=== PATIENT | male | born 1990 | race Caucasian/White ===

== ENCOUNTER 2017-10-17 20:43 | Emergency (ER) | payer OTHER, SELFPAY ==
[2017-10-17 20:44] VITALS: BP 146/95; PULSE 105; RESP 16; TEMP 36.8; O2SAT 96; BMI 28.5
[2017-10-17 21:01] LABS: Bedside Glucose 127 mg/dL (70-110)
--- NOTE | 2017-10-17 21:31 | EKG12_ITS ---
Test Reason : DIZZINESS Blood Pressure : / mmHG Vent. Rate : 058 BPM Atrial Rate : 058 BPM P-R Int : 160 ms QRS Dur : 112 ms QT Int : 400 ms P-R-T Axes : 051 022 019 degrees QTc Int : 392 ms Sinus bradycardia with sinus arrhythmia Otherwise normal ECG Confirmed by REMIGIO VASQUEZ, JAMIE ([id number]), editor at large ANA PATEL ([id number]) on 10/20/2017 10:36:30 AM Referred By: VAL Confirmed By:JAMIE FLOOD MD
--- NOTE | 2017-10-17 21:38 | ED.VISSUMM ---
- ER Visit Summary Date of Service: 10/17/17 Chief Complaint: [] Transient dizziness resolved History of Present Illness: The patient is a 27 M [] patient reports earlier they had a nonspecific sense of dizziness such that he did not go to work the dizziness resolved. He had no associated chest pain head pain neck pain no paresthesias, no trouble with his vision fact he had normal functional ability symptoms resolved spontaneously and have not reoccurred he presents to the emergency department, he has had these spells in the past but never followed up Physical Examination: [] Vital signs are normal he has no complaints he is not dizzy he has no symptoms of any kind and not I cannot reproduce his dizziness with movement etc. his HEENT exam is normal his cranial nerve exam is normal his pupils react well nose and throat are unremarkable neck is supple lungs are clear heart tones are normal abdomen soft nontender upper lower extremities unremarkable his motor cerebellar function gait exam are normal he assures me he feels back to baseline Test Results: [] He does not wish to have an ED evaluation specifically does not want any blood testing done imaging etc. he did agree with the EKG that showed sinus rhythm nothing acute he simply wants to go home Emergency Department Course and Treatment: [] At this time given that I explained to him the exact etiology of his transient dizziness that has had in the past unclear he needs to follow-up with his physicians indicates is not sure who that is he will rest return for change in symptoms and he is referred to [facility] on-call Treatment Plan: [] Disposition: [] Home stable client ED workup Impression: [] Transient dizziness resolved This note was generated with [employer] dictation software. It may contain incorrect words, spelling, and punctuation that were not noted in review of the chart prior to signing ED Disposition - Plan for ED Patient: Chief Complaint: Dizziness Referrals: Care Physician,No Primary [Primary Care Provider] -
--- NOTE | 2017-10-17 21:40 | ED.DEP ---
ED Disposition - Plan for ED Patient: Chief Complaint: Dizziness Instructions: ED Dizziness UKO Referrals: Care Physician,No Primary [Primary Care Provider] - Miles Lee [[facility]] -
[2017-10-17 22:16] VITALS: RESP 18
== END 2017-10-17 22:16 | disposition home or self-care (01) ==
PROVIDERS: Emergency Provider Emergency Medicine
DX: R42 Dizziness and giddiness (principal)
CPT/HCPCS: 82962; 93005; 99282

== ENCOUNTER 2017-11-22 16:12 | Emergency (ER) | payer OTHER, SELFPAY ==
[2017-11-22 16:13] VITALS: BP 158/97; PULSE 99; RESP 16; TEMP 36.9; O2SAT 99; BMI 29.8
--- NOTE | 2017-11-22 16:51 | ED.VISSUMM ---
- ER Visit Summary Date of Service: 11/22/17 Chief Complaint: Rectal discomfort and bleeding History of Present Illness: The patient is a 27 M past medical or surgical history. Patient states that today after having a morning bowel movement he had some pain and small rectal bleeding. There is very small amount of blood. Denies any fever. No trauma. No foreign bodies. Said he had this once before but never got it evaluated. He has never had a colonoscopy. Physical Examination: Appearing young male. Vital signs are stable afebrile. He is no acute distress. H EENT neck nontender. Lungs clear to auscultation bilaterally. Heart regular rate and rhythm no murmur. Abdomen is soft nontender. Nondistended no bowel sounds. No organomegaly or masses. Rectal exam he does have rectal tenderness currently there is no bleeding or gross blood. I do not feel any masses. There is no melena. Externally there is no hemorrhoids and there is no gross blood. He is moving all 4 extremities. Neurovascular intact. Neurologic exam normal. Skin normal. Test Results: None Emergency Department Course and Treatment: She has mild rectal discomfort with also small amount of rectal bleeding. More than likely has an internal hemorrhoid versus a fissure. He was instructed to use hemorrhoid cream preparation H. Warm soaks. And he will be given a primary care physician follow-up with. Treatment Plan: [] Disposition: Discharge Impression: Rectal discomfort and bleeding secondary to internal hemorrhoid versus fissure This note was generated with [employer] dictation software. It may contain incorrect words, spelling, and punctuation that were not noted in review of the chart prior to signing ED Disposition - Plan for ED Patient: Chief Complaint: Other, Pain/Inj Referrals: Care Physician,No Primary [Primary Care Provider] -
--- NOTE | 2017-11-22 16:53 | ED.DEP ---
ED Disposition - Plan for ED Patient: Disposition: Home or Assisted Living Chief Complaint: Other, Pain/Inj Instructions: ED Hematochezia Stable, Understanding Hemorrhoids Referrals: Aaron Branch MD [STAFF PHYSICIAN] - Additional Instructions: Use [id number] Preparation H for pain and possible internal hemorrhoids. This is most likely cause either from an internal hemorrhoid versus a rectal fissure which is a small tear in the skin. Warm soaks and the hemorrhoid cream should improve this. If this is not getting better you need follow-up for further evaluation and possible colonoscopy.
== END 2017-11-22 17:01 | disposition home or self-care (01) ==
PROVIDERS: Emergency Provider Emergency Medicine
DX: K62.5 Hemorrhage of anus and rectum (principal); K62.89 Other specified diseases of anus and rectum
CPT/HCPCS: 99282

== ENCOUNTER 2018-05-22 15:31 | Emergency (ER) | payer MEDICAID, SELFPAY ==
[2018-05-22 15:32] VITALS: BP 120/80; PULSE 81; RESP 18; TEMP 36.7; O2SAT 97; BMI 29.4
[2018-05-22] MEDS: 0.9% Normal Saline 1,000 ML 250 ML IV (16:41)
[2018-05-22] MEDS: Ketorolac 30 MG/ML Syringe IV (16:41)
[2018-05-22] MEDS: Morphine 4 MG/ML Syringe IV (16:42)
[2018-05-22] MEDS: Ondansetron 4 MG/2 ML Vial IV (16:42)
[2018-05-22 16:52] LABS: Bacteria 0 SEEN /hpf (None Seen); Mucous, Urine 0 SEEN /hpf (<or=2+); Red Blood Cells-Urine 0 SEEN /hpf (0-5); White Blood Cells 0 SEEN /hpf (0-5)
[2018-05-22 16:55] LABS: Color, Urine Yellow (Yellow); Glucose, Dipstick Normal (Normal); Ketone-Dipstick Negative (Negative); Leukocyte Esterase-Dipstick Negative /ul (Negative); Nitrite-Dipstick Negative (Negative); Occult Blood-Urine Negative /ul (Negative); Protein-Dipstick Negative (Negative); Urine Bilirubin Dipstick Negative (Negative); Urine Clarity Clear (Clear); Urine Urobilinogen Normal (Normal)
[2018-05-22 17:02] LABS: Squamous Epithelial Cells - UA 0-5 SEEN /hpf (0-5)
[2018-05-22 18:11] VITALS: BP 114/67; PULSE 60; RESP 16; O2SAT 97
--- NOTE | 2018-05-22 19:25 | ED.VISSUMM ---
- ER Visit Summary Date of Service: 05/22/18 Chief Complaint: Patient presents with abrupt onset of left flank pain radiating anteriorly and to the groin. History of Present Illness: The patient is a 27 M who presents with acute left flank pain that started yesterday that radiates anteriorly into the groin. He reports frequency. He denies dysuria or hematuria. He states he cannot find a position of comfort. He denies vomiting, diarrhea or constipation. He denies history of renal ureterolithiasis. Both mother and father have history of kidney stones. He denies cough, shortness of breath or difficulty breathing. He denies any food intolerance. There is no history of trauma. Please read written note. Physical Examination: Vital signs are normal. He appears uncomfortable. BMI is 29.4. Head is atraumatic normocephalic. Pupils are equal round reactive. Extraocular muscles are intact. TMs are pearly white with landmarks noted. Nares patent with no drainage. Posterior pharynx without erythema or exudate. Uvula is midline. There is no dysphonia or dysphasia. Trachea is midline. There is no stridor with auscultation of the neck. Heart is regular without murmur, gallop or rub. S1 and S2 are normal. Lungs are clear to auscultation with good movement of air bilaterally. Abdomen is soft and nontender. There is no guarding or peritoneal findings. There is no palpable pulsatile mass. There is no abdominal bruit. Fernandez sign is negative. Negative Rovsing sign. There is no evidence of inguinal or umbilical hernia. There is no CVA tenderness right or left side. Lower extremity exam is unremarkable. There is no neurovascular findings. Neuro exam is nonfocal. Test Results: UA is negative. CT of the abdomen and pelvis without contrast reveals no evidence of any urologic pathology. There is no intra-abdominal process other than fecal stasis/constipation Emergency Department Course and Treatment: In light of abrupt onset of flank pain rating anteriorly and the fact that the patient appears uncomfortable he was medicated with Zofran, Toradol and morphine IV push. CT of the abdomen and pelvis without contrast was obtained and a UA. Treatment Plan: Patient was informed of his findings and he was instructed what needed to be done. He reports marked improvement of his discomfort. Disposition: Discharged home with appropriate home-going instructions Impression: 1. Left flank pain unknown etiology 2. Constipation This note was generated with [employer] dictation software. It may contain incorrect words, spelling, and punctuation that were not noted in review of the chart prior to signing ED Disposition - Plan for ED Patient: Disposition: Home or Assisted Living Chief Complaint: Flank Pain Instructions: ED Flank Pain Uncertain Cause, ED Constipation Referrals: Care Physician,No Primary [Primary Care Provider] - Jayla Eubanks [NON-STAFF] - 3-5 Days if not improving Additional Instructions: Tomorrow morning drink 10 ounces of mag citrate. 4 hours later drink 1 glass of MiraLAX. Continue to drink a glass of MiraLAX every 1-2 hours until you have results.
[2018-05-22 19:49] VITALS: BP 113/67; PULSE 64; RESP 14
== END 2018-05-22 19:55 | disposition home or self-care (01) ==
PROVIDERS: Emergency Provider Emergency Medicine
DX: R10.9 Unspecified abdominal pain (principal); K59.00 Constipation, unspecified; E66.9 Obesity, unspecified
CPT/HCPCS: 74176; 81001; 96361; 96374; 96375; 99283; J2405

== ENCOUNTER 2019-01-13 17:44 | Emergency (ER) | payer MEDICAID, SELFPAY ==
[2019-01-13 17:45] VITALS: BP 145/70; PULSE 102; RESP 17; TEMP 36.7; O2SAT 96; BMI 36.6
--- NOTE | 2019-01-13 19:43 | ED.RN ---
PATIENT LWBS AT 1939
== END 2019-01-13 19:39 | disposition left against medical advice (07) ==
LOC: ED 19:50
PROVIDERS: Emergency Provider Emergency Medicine
DX: R69 Illness, unspecified (principal); Z53.21 Procedure and treatment not carried out due to patient leaving prior to being seen by health care provider

== ENCOUNTER 2019-01-14 17:24 | Emergency (ER) | payer MEDICAID, SELFPAY ==
[2019-01-13 17:45] VITALS: BMI 36.6
[2019-01-14 17:25] VITALS: BP 145/92; PULSE 85; RESP 14; TEMP 37.1; O2SAT 97; BMI 36.3
--- NOTE | 2019-01-14 17:53 | EKG12_ITS ---
Test Reason : EDEMA Blood Pressure : / mmHG Vent. Rate : 084 BPM Atrial Rate : 084 BPM P-R Int : 160 ms QRS Dur : 120 ms QT Int : 398 ms P-R-T Axes : 063 007 023 degrees QTc Int : 470 ms Normal sinus rhythm with sinus arrhythmia RSR' or QR pattern in V1 suggests right ventricular conduction delay Borderline ECG Confirmed by REMIGIO VASQUEZ, JAMIE ([id number]), research editor KAUSHAL PINEDA ([id number]) on 01/17/2019 11:48:17 AM Referred By: KATIE Confirmed By:JAMIE FLOOD MD
--- NOTE | 2019-01-14 17:55 | ED.VISSUMM ---
- ER Visit Summary Date of Service: 01/14/19 Chief Complaint: Bilateral lower extremity swelling History of Present Illness: The patient is a 28 M no significant past medical or surgical history. Patient does not see a physician. He states the last 3 days he had swelling in both lower extremities. No pain no fall no trauma. He denies any other complaints. He is a urinating normally. States that he is moving his bowels. Physical Examination: Vital signs are stable and afebrile. Initial blood pressure 1 4592. Pulse ox 97% on room air no hypoxia. He is in no distress. H EENT exam unremarkable. Neck nontender no JVD. Lungs clear all station bilaterally. Heart regular rhythm rate about 80 no murmur. Chest nontender. Abdomen soft nontender. No masses. Nondistended. No ascites. Remedies patient is moving all 4. He has 1+ pitting edema of the both knees bilaterally. Pulses intact. Calves are nontender. Neurologically is awake alert with no focal motor deficits. Test Results: Chest x-ray two-view shows no acute and evaluated by myself the radiologist. EKG sinus rhythm rate 84 no acute signs of DC or ischemia. No dysrhythmia. CBC normal white count 7. Heme globin 12. Chemistries unremarkable. Normal creatinine and gap. Creatinine 0.9. Liver enzymes mildly elevated. Due to the patient's significant swelling both lower extremities I did obtain noninvasive study which showed no DVT as read by the solder technician and told me. Emergency Department Course and Treatment: Young male with bilateral lower extremity peripheral edema for the last 3 days without any other complaints. He has had some weight gain over the last year. He has no other significant past medical history. Repeat exams patient is doing well at 2245. I explained to them I do not have a specific cause for his peripheral edema. He will be instructed to follow-up with an outpatient primary care physician or the [facility] for further evaluation. Treatment Plan: Outpatient follow-up Disposition: Discharge Impression: Bilateral lower extremity peripheral edema etiology This note was generated with [employer] dictation software. It may contain incorrect words, spelling, and punctuation that were not noted in review of the chart prior to signing ED Disposition - Plan for ED Patient: Referrals: Care Physician,No Primary [Primary Care Provider] -
--- NOTE | 2019-01-14 17:59 | ED.DCSUM_ITS ---
- ER Visit Summary Date of Service: 01/14/19 Chief Complaint: Bilateral lower extremity swelling History of Present Illness: The patient is a 28 M no significant past medical or surgical history. Patient does not see a physician. He states the last 3 days he had swelling in both lower extremities. No pain no fall no trauma. He denies any other complaints. He is a urinating normally. States that he is moving his bowels. Physical Examination: Vital signs are stable and afebrile. Initial blood pressure 1 4592. Pulse ox 97% on room air no hypoxia. He is in no distress. H EENT exam unremarkable. Neck nontender no JVD. Lungs clear all station bilaterally. Heart regular rhythm rate about 80 no murmur. Chest nontender. Abdomen soft nontender. No masses. Nondistended. No ascites. Remedies patient is moving all 4. He has 1+ pitting edema of the both knees bilaterally. Pulses intact. Calves are nontender. Neurologically is awake alert with no focal motor deficits. Test Results: Chest x-ray two-view shows no acute and evaluated by myself the radiologist. EKG sinus rhythm rate 84 no acute signs of NH or ischemia. No dysrhythmia. CBC normal white count 7. Heme globin 12. Chemistries unremarkable. Normal creatinine and gap. Creatinine 0.9. Liver enzymes mildly elevated. Due to the patient's significant swelling both lower extremities I did obtain noninvasive study which showed no DVT as read by the electronic communications technician and told me. Emergency Department Course and Treatment: Young male with bilateral lower extremity peripheral edema for the last 3 days without any other complaints. He has had some weight gain over the last year. He has no other significant past medical history. Repeat exams patient is doing well at 2245. I explained to them I do not have a specific cause for his peripheral edema. He will be instructed to follow-up with an outpatient primary care physician or the [facility] for further evaluation. Treatment Plan: Outpatient follow-up Disposition: Discharge Impression: Bilateral lower extremity peripheral edema etiology This note was generated with [email or web address] dictation software. It may contain incorrect words, spelling, and punctuation that were not noted in review of the chart prior to signing ED Disposition - Plan for ED Patient: Referrals: Care Physician,No Primary [Primary Care Provider] -
--- NOTE | 2019-01-14 18:25 | RAD_ITS ---
STUDY: X-RAY CHEST REASON FOR EXAM: Male, 28 years old. Bilateral foot edema for 3 days. TECHNIQUE: PA and lateral views of the chest. COMPARISON: None. FINDINGS: The lungs are clear and expanded. There is no demonstrated pleural abnormality. Normal size heart. Normal mediastinum and lluvia. Normal visualized pulmonary arteries. Normal visualized aortic arch and descending thoracic aorta. Normal visualized thoracic spine. Normal visualized ribs, clavicles, and shoulders. There is no demonstrated abnormality of the visualized soft tissue structures of the upper abdomen. RAD/Chest PA and Lateral IMPRESSION: No acute cardiopulmonary disease. Electronically Signed: Radames Doyle DO at 18:43 EDT Tel [phone], Service support ,
[2019-01-14 18:31] LABS: Absolute Lymphocyte Count 3.63 X10^3/ul (0.83-4.51); Absolute Neutrophil Count 3.2 X10^3/uL (2.0-7.7); Basophil# 0.02 X10^3/uL; Basophil% 0.3 % (0-1); Eosinophil# 0.29 X10^3/uL; Eosinophils% 3.7 % (0-5); Hematocrit 38.4 % (40-54); Hemoglobin 12.8 g/dl (13.0-16.5); Lymphocyte # 3.63 X10^3/ul (4.0); Lymphocyte % 46.5 % (19-41); Mean Corp Hgb Conc 33.3 g/gl (32-36); Mean Corpuscular Hgb 29.2 pg (27.0-32.0); Mean Corpuscular Volume 87.5 fL (80-94); Monocyte# 0.64 X10^3/uL; Monocyte% 8.2 % (0-10); Neutrophil # 3.19 X10^3/uL (2.7-7.7); Neutrophil % 40.9 % (47-70); Platelet Count 179 K/mm3 (150-450); RBC Distribution Width CV 12.9 % (11.6-14.6); RBC Distribution Width SD 41.4 fl (35.1-43.9); Red Blood Count 4.39 M/mm3 (4.6-6.2); White Blood Count 7.8 K/mm3 (4.4-11.0)
[2019-01-14 18:36] LABS: POSITIVE COUNT NO; POSITIVE DIFFERENTIAL NO; POSITIVE MORPHOLOGY NO
[2019-01-14 18:47] LABS: AST(SGOT) 44 U/L (15-37); Alanine Aminotransfer ALT/SGPT 65 U/L (16-61); Alkaline Phosphatase 118 U/L (45-117); Anion Gap 4 (5-15); BUN 11 mg/dL (7-18); BUN/Creat Ratio 12.3 RATIO (10-20); Bilirubin, Direct 0.09 mg/dL (0.00-0.30); Calcium,Total 8.8 mg/dL (8.5-10.1); Chloride 102 mmol/L (98-107); EST Glomerular Filtration Rate 109 mL/min (>60); Est Glom Filt Rate - Afr Amer 132 mL/min (>60); Estimated Creatinine Clearance 136.52 ml/min; Globulin 3.7 g/dL (2.2-4.2); Glucose 98 mg/dL (74-106); Potassium 3.9 mmol/L (3.5-5.1); Protein, Total 7.7 g/dL (6.4-8.2); Sodium Level 139 mmol/L (136-145)
--- NOTE | 2019-01-14 21:00 | US_ITS ---
STUDY: VENOUS DOPPLER ULTRASOUND - BILATERAL LOWER EXTREMITIES REASON FOR EXAM: Male, 28 years old. Peripheral lower extremity edema. TECHNIQUE: Ultrasound evaluation of the deep vein system to include gamboa-scale imaging and compression was performed. Gamboa-scale imaging and Doppler sonographic evaluation, including duplex spectral analysis and qualitative color flow sonography, was performed. COMPARISON: None. FINDINGS: RIGHT LEG Common Femoral Vein: Normal compression, spontaneity and augmentation. Normal color Doppler. Common Femoral Vein/Greater Saphenous Junction: Normal compression, spontaneity and augmentation. Normal color Doppler. Deep Femoral Vein: Normal compression, spontaneity and augmentation. Normal color Doppler. Femoral Proximal: Normal compression, spontaneity and augmentation. Normal color Doppler. Femoral Middle: Normal compression, spontaneity and augmentation. Normal color Doppler. Femoral Distal: Normal compression, spontaneity and augmentation. Normal color Doppler. Popliteal Vein: Normal compression, spontaneity and augmentation. Normal color Doppler. Posterior Tibial Vein: Normal compression, spontaneity and augmentation. Normal color Doppler. Peroneal Vein: Normal compression, spontaneity and augmentation. Normal color Doppler. LEFT LEG Common Femoral Vein: Normal compression, spontaneity and augmentation. Normal color Doppler. Common Femoral Vein/Greater Saphenous Junction: Normal compression, spontaneity and augmentation. Normal color Doppler. Deep Femoral Vein: Normal compression, spontaneity and augmentation. Normal color Doppler. Femoral Proximal: Normal compression, spontaneity and augmentation. Normal color Doppler. Femoral Middle: Normal compression, spontaneity and augmentation. Normal color Doppler. Femoral Distal: Normal compression, spontaneity and augmentation. Normal color Doppler. Popliteal Vein: Normal compression, spontaneity and augmentation. Normal color Doppler. Posterior Tibial Vein: Normal compression, spontaneity and augmentation. Normal color Doppler. Peroneal Vein: Normal compression, spontaneity and augmentation. Normal color Doppler. US/Venous Duplex Imag/Ellis Extrem IMPRESSION: Normal venous Doppler ultrasound of the bilateral lower extremities. Electronically Signed: Michael Washington, at 9:42 EDT , Service support ,
--- NOTE | 2019-01-14 22:47 | ED.DEP ---
ED Disposition - Plan for ED Patient: Disposition: Home or Assisted Living Instructions: ED Leg Swelling Bilateral Referrals: Jayla Eubanks [NON-STAFF] - As soon as possible Pollo Mathis MD [STAFF PHYSICIAN] - As soon as possible Additional Instructions: Swelling in the lower extremity is called peripheral edema. I do not know why you have it at this time. Your labs are normal. Your heart rhythm is normal. Your chest x-ray is normal. And there is no signs of any blood clot. Your kidney function at this time is normal also. You will need to follow-up with outpatient primary care physician and have further evaluation.
[2019-01-14 22:56] VITALS: RESP 16
== END 2019-01-14 22:56 | disposition home or self-care (01) ==
PROVIDERS: Emergency Provider Emergency Medicine
DX: R60.0 Localized edema (principal)
CPT/HCPCS: 71046; 80048; 80076; 85025; 93005; 93970; 99283; A4216

== ENCOUNTER 2019-07-10 10:46 | Emergency (ER) | payer MEDICAID, SELFPAY ==
[2019-07-10 10:47] VITALS: BP 164/88; PULSE 104; RESP 17; TEMP 36.6; O2SAT 99; BMI 36.3
--- NOTE | 2019-07-10 11:00 | ED.DCSUM_ITS ---
- ER Visit Summary Date of Service: 07/10/19 Chief Complaint: Dental pain History of Present Illness: The patient is a 28 M with right maxillary dental pain. This has been going on for days. He believes he fractured his wisdom tooth several days prior to that. Denies any other associated symptoms. He do es have a dentist, but has not followed up yet. Physical Examination: Afebrile and vital signs unremarkable. HEENT exam unremarkable except for tooth #1 which is fractured secondary to underlying decay. There is no sign of abscess, trismus, tongue elevation. His airway is intact. No lymphadenopathy. No meningeal signs. Skin appears normal. Test Results: None indicated Emergency Department Course and Treatment: Patient has a dental fracture secondary to suspected underlying decay. He was treated with amoxicillin and naproxen. He was given a short course of [place] for breakthrough pain. Follow- up with dental. Risks of prescription pain medication were discussed and precautions were discussed. Treatment Plan: As above Disposition: Discharge Impression: 1. Dental pain This note was generated with [employer] dictation software. It may contain incorrect words, spelling, and punctuation that were not noted in review of the chart prior to signing ED Disposition - Plan for ED Patient: Referrals: Care Physician,No Primary [Primary Care Provider] -
--- NOTE | 2019-07-10 11:02 | DCINST.ED_ITS ---
ED Disposition - Plan for ED Patient: Instructions: Dental Pain Prescriptions: Naproxen [Naprosyn] 500 mg PO BID #20 tab Prescription Printed Hydrocodone Bitart/Apap 5-325 [[place] 5MG-325MG] 1 tab PO Q6H PRN PRN 2 Days #8 tab PRN Reason: Pain Prescription Printed Penicillin V Potassium 500 mg PO 4X/DAY #40 tab Prescription Printed Additional Instructions: follow up with your dentist
[2019-07-10] MEDS: Naproxen 500 MG Tablet PO (11:16)
[2019-07-10] MEDS: Penicillin Vk 250 MG Tablet 500 MG PO (11:16)
[2019-07-10] MEDS: HYDROcodone Bitartrate/Apap 5/325 Tablet PO (11:16)
[2019-07-10 11:21] VITALS: PULSE 99; RESP 17; O2SAT 99
== END 2019-07-10 11:23 | disposition home or self-care (01) ==
LOC: ED 11:01
PROVIDERS: Emergency Provider Emergency Medicine
DX: K08.89 Other specified disorders of teeth and supporting structures (principal)
CPT/HCPCS: 99283

== ENCOUNTER 2020-05-27 15:43 | Observation (INO) | payer MEDICAID, SELFPAY ==
[2020-05-27 15:44] VITALS: BP 164/91; PULSE 108; RESP 18; TEMP 36.1; O2SAT 97; BMI 31.1
--- NOTE | 2020-05-27 15:55 | EKG12_ITS ---
Test Reason : Blood Pressure : / mmHG Vent. Rate : 082 BPM Atrial Rate : 082 BPM P-R Int : 166 ms QRS Dur : 108 ms QT Int : 378 ms P-R-T Axes : 059 006 012 degrees QTc Int : 441 ms Normal sinus rhythm Incomplete right bundle branch block Borderline ECG Confirmed by REMIGIO VASQUEZ, JAMIE ([id number]), sound editor ALEXX CHEATHAM ([id number]) on 05/30/2020 9:46:29 AM Referred By: FLORIN Confirmed By:JAMIE FLOOD MD
--- NOTE | 2020-05-27 15:55 | ED.VIS.GEN ---
History of Present Illness Informant: Patient Onset: Today Context: Gradual Onset Timing: Continuous Current Severity: Severe Maximum Severity: Severe Worsened by: nothing Relieved by: nothing Associated Symptoms: denies Narrative: 29-year-old male requesting detox from heroin. Patient has been using 2 g of heroin daily for the last 2 years. He normally snorts heroin. His last use was 2 hours ago. He denies any other drugs or alcohol he does not smoke cigarettes. No history of previous detox admission. He is asymptomatic at this time. He denies any significant past medical history. Prior similar symptoms: No Recent Illness/Hospitalization: No <Arben Mattson - Last Filed: 05/27/20 18:17> <Shania Enciso - Last Filed: 05/27/20 19:41> Chief Complaint: Substance Abuse Past Medical History Prior records reviewed: Yes Past Medical History: None Surgical History: no surgical history Lives: With Family Smoking Status: Current every day smoker Alcohol: None Drugs: Heroin <Arben Mattson - Last Filed: 05/27/20 18:17> - Family History Maternal Family History: Reports: No pertinent history Paternal Family History: Reports: No pertinent history <Shania Enciso - Last Filed: 05/27/20 19:41> - Allergies and Home Meds Allergies/Adverse Reactions: Allergies No Known Allergies Allergy (Verified 05/27/20 15:45) Review of Systems All systems negative except as indicated General: Denies: Chills, Fever, Sweats Eyes: Denies: Visual changes - bilaterally, Diplopia ENT: Denies: Rhinorrhea, Sore throat Cardiovascular: Denies: Chest pain, Palpitations Respiratory: Denies: Dyspnea, Cough, Dyspnea on exertion Gastrointestinal: Denies: Abdominal pain, Nausea, Vomiting, Diarrhea, Melena, Hematochezia Genitourinary: Denies: Dysuria, Hematuria, Frequency Musculoskeletal: Denies: Back pain, Extremity Pain Skin: Denies: Rash, Wounds Neurological: Denies: Headache, Weakness, Numbness <Arben Mattson - Last Filed: 05/27/20 18:17> Physical Exam Vital Signs/Narrative: Vital Signs Temp Pulse Resp BP Pulse Ox 05/27/20 15:44 96.9 F L 108 H 18 164/91 H 97 Inital Vital Signs reviewed: Yes General: Well nourished, Well developed, No Acute Distress Head: Normocephalic, Atraumatic Eyes: Perrl, EOMI ENT: Moist mucous membranes, No rhinorrhea Neck: Supple, Nontender Cardiovascular: Regular rate, Regular rhythm, No murmurs Respiratory: No distress, CTA bilaterally, Chest nontender Abdomen: Soft, Nontender, Nondistended, Normal bowel sounds Back: Nontender, Normal Inspection Extremities: Nontender, No edema Skin: Normal color, No rash Neurological: Alert, Oriented x3, Cranial nerves II-XII grossly intact, Normal Strength, Normal Sensation Psychological: Normal affect, Normal Mood <Arben Mattson - Last Filed: 05/27/20 18:17> Vital Signs/Narrative: Vital Signs Temp Pulse Resp BP Pulse Ox 05/27/20 15:44 96.9 F L 108 H 18 164/91 H 97 <Shania Enciso - Last Filed: 05/27/20 19:41> Diagnostic/Tx/Re-eval Laboratory Results 05/27/20 05/27/20 05/27/20 16:13 16:13 16:13 WBC 6.5 RBC 4.72 Hgb 14.2 Hct 42.0 MCV 89.0 MCH 30.1 MCHC 33.8 RDW Std Deviation 41.1 RDW Coeff of Se 12.6 Plt Count 230 MPV 10.5 Immature Gran % (Auto) 0.200 Neut % (Auto) 45.8 L Lymph % (Auto) 45.5 H [place] % (Auto) 6.5 Eos % (Auto) 1.5 Baso % (Auto) 0.5 Absolute Neuts (auto) 3.0 Absolute Lymphs (auto) 2.95 Nucleated RBC % 0 Sodium 141 Potassium 4.0 Chloride 105 Carbon Dioxide 31.0 Anion Gap 5 BUN 9 Creatinine 0.94 Estim Creat Clear Calc 129.56 Est GFR (MDRD) Af Amer 124 Est GFR (MDRD) Non-Af 102 BUN/Creatinine Ratio 9.6 L Glucose 131 H Calcium 9.1 Total Bilirubin 0.40 AST 35 ALT 63 H Alkaline Phosphatase 103 Total Protein 7.8 Albumin 4.2 Globulin 3.6 Albumin/Globulin Ratio 1.2 Urine Opiates Screen Urine Methadone Screen Ur Barbiturates Screen Ur Phencyclidine Scrn Ur Amphetamines Screen U Methamphetamin-MDMA U Benzodiazepines Scrn Urine Cocaine Screen U Cannabinoids Screen Ur Drug Screen Comment Ethyl Alcohol < 3.0 05/27/20 17:00 WBC RBC Hgb Hct MCV MCH MCHC RDW Std Deviation RDW Coeff of Se Plt Count MPV Immature Gran % (Auto) Neut % (Auto) Lymph % (Auto) [place] % (Auto) Eos % (Auto) Baso % (Auto) Absolute Neuts (auto) Absolute Lymphs (auto) Nucleated RBC % Sodium Potassium Chloride Carbon Dioxide Anion Gap BUN Creatinine Estim Creat Clear Calc Est GFR (MDRD) Af Amer Est GFR (MDRD) Non-Af BUN/Creatinine Ratio Glucose Calcium Total Bilirubin AST ALT Alkaline Phosphatase Total Protein Albumin Globulin Albumin/Globulin Ratio Urine Opiates Screen NEGATIVE Urine Methadone Screen NEGATIVE Ur Barbiturates Screen NEGATIVE Ur Phencyclidine Scrn NEGATIVE Ur Amphetamines Screen NEGATIVE U Methamphetamin-MDMA NEGATIVE U Benzodiazepines Scrn NEGATIVE Urine Cocaine Screen NEGATIVE U Cannabinoids Screen POSITIVE H Ur Drug Screen Comment Ethyl Alcohol - Rhythm Strip Rhythm Strip: Sinus Rhythm Rate: 82 Ectopy: None - EKG Initial EKG Interpretation: Sinus Rhythm, No Acute Injury Pattern Prior: Unchanged - Medical Decision Making Patient presents requesting detox from opiates. His laboratory work-up was unremarkable. Urine shows positive THC. Patient remains calm and cooperative he has not required any medications he does not appear to be in acute withdrawal. I spoke with the hospitalist who agreed to admit <Arben Mattson - Last Filed: 05/27/20 18:17> - Medical Decision Making Patient seen and evaluated with physicians religious assistant. Patient was independently interviewed and examined. Patient presents requesting detox from heroin. He reports using 2 g a day for the last 2 years. He has been imprisoned secondary to his drug use. He states that he has gone through withdrawals when he was imprisoned in the past, but has never gone through a formal rehab program. He has made multiple calls to the hospital to ask questions about the program and wishes to proceed at this time. His last use was just a couple hours prior to arrival. Patient sitting upright in bed no acute distress. Head and neck examination unremarkable. Heart regular rate and rhythm. Lung sounds are clear. Abdomen is soft and nontender. Addiction medicine labs and urine tox are obtained. Patient discussed with hospitalist for admission. <Shania Enciso - Last Filed: 05/27/20 19:41> ED Disposition <Arben Mattson - Last Filed: 05/27/20 18:17> <Shania Enciso - Last Filed: 05/27/20 19:41> - Plan for ED Patient: Disposition: Acute Care Hospital [facility] Diagnosis: Opiate dependence
[2020-05-27 16:28] LABS: Absolute Lymphocyte Count 2.95 X10^3/uL (0.83-4.51); Basophil# 0.03 X10^3/uL; Basophil% 0.5 % (0-1); Eosinophils% 1.5 % (0-5); Hemoglobin 14.2 g/dL (13.0-16.5); Lymphocyte # 2.95 X10^3/ul (4.0); Lymphocyte % 45.5 % (19-41); Mean Corp Hgb Conc 33.8 g/dL (32-36); Mean Corpuscular Hgb 30.1 pg (27.0-32.0); Mean Platelet Vol. 10.5 fl (6.2-12.0); Monocyte# 0.42 X10^3/uL; Monocyte% 6.5 % (0-10); NRBC Flagged by Analyzer 0 % (0-5); Neutrophil # 2.97 X10^3/uL (2.7-7.7); Neutrophil % 45.8 % (47-70); Platelet Count 230 K/mm3 (150-450); RBC Distribution Width CV 12.6 % (11.6-14.6); RBC Distribution Width SD 41.1 fl (35.1-43.9); Red Blood Count 4.72 M/mm3 (4.6-6.2); White Blood Count 6.5 K/mm3 (4.4-11.0)
[2020-05-27 16:38] LABS: ALB/GLOB Ratio 1.2 RATIO (0.9-2.4); AST(SGOT) 35 U/L (15-37); Alanine Aminotransfer ALT/SGPT 63 U/L (16-61); Albumin, Serum 4.2 g/dL (3.2-5.0); Alkaline Phosphatase 103 U/L (45-117); Anion Gap 5 (5-15); BUN 9 mg/dL (7-18); BUN/Creat Ratio 9.6 RATIO (10-20); Calcium,Total 9.1 mg/dL (8.5-10.1); Chloride 105 mmol/L (98-107); Creatinine, Serum 0.94 mg/dL (0.70-1.30); EST Glomerular Filtration Rate 102 mL/min (>60); Est Glom Filt Rate - Afr Amer 124 mL/min (>60); Estimated Creatinine Clearance 129.56 ml/min; Globulin 3.6 g/dL (2.2-4.2); Glucose 131 mg/dL (74-106); Protein, Total 7.8 g/dL (6.4-8.2); Sodium Level 141 mmol/L (136-145)
[2020-05-27 16:40] LABS: Alcohol, Blood (Medical)-Serum < 3.0 mg/dL
[2020-05-27 17:28] LABS: Amphetamine Urine VISTA NEGATIVE (<1000 ng/mL); Barbiturate Urine VISTA NEGATIVE (< 200 ng/mL); Benzodiazepine Urine VISTA NEGATIVE (< 200 ng/mL); Cocaine Urine VISTA NEGATIVE (< 300 ng/mL); Ecstacy Urine VISTA NEGATIVE (< 500 ng/mL); Methadone Urine VISTA NEGATIVE (< 300 ng/mL); PCP Urine VISTA NEGATIVE (< 25 ng/mL); THC Urine VISTA POSITIVE (< 50 ng/mL); Vista UDS pH Range 6
--- NOTE | 2020-05-27 18:16 | HP.PCM_ITS ---
History of Present Illness Date of Admission: 05/27/20 Chief Complaint: Acute opioid withdrawal The patient is a 29 year old M with no significant past medical history. He was admitted through the ED on 05/27/2020 with a complaint of acute opiate withdrawal. Patient uses heroin and his last use was about 2 hours prior to admission. Patient states he only snorts the heroin. He has never been through detox and also uses nicotine. He denied any abdominal pain, tremors, cramping, increased sweating fever or chills. Review systems otherwise negative. In the ED, vitals showed temperature of 96.9 with blood pressure of 162/91 and pulse rate of 108 as well as respiratory rate of 18. Chemistry was essentially unremarkable apart from ALP of 63. CBC was also unremarkable. Urine tox was positive for cannabinoids and negative for opiates. Blood alcohol level was less than 3. He has been admitted to be managed for acute opiate withdrawal. [] Past Medical History Allergies No Known Allergies Allergy (Verified 05/27/20 15:45) Home Medications: Ambulatory Orders Medication Instructions Recorded NK 05/27/20 Surgical History: no surgical history Psychiatric History: No pertinent psych hx Lives: Alone Smoking Status: Never smoker Alcohol: None Drugs: Heroin - *Family History Maternal History Items: No pertinent history Paternal History Items: No pertinent history Review of Systems Constitutional: Denies: Chills, Fever, Weight Change HEENT: Denies: Head Aches, Sinus Congestion, Sinus Drainage Cardiovascular: Denies: Chest Pain, Chest Pressure, Chest Tightness, Edema, Palpitations Respiratory: Denies: Cough, Shortness of Breath, Shortness of breath at rest, Sputum production Gastrointestinal: Denies: Abdominal Pain, Nausea, Vomiting Genitourinary: Denies: Dysuria Musculoskeletal: Denies: Joint Pain, Joint Tenderness Skin: Denies: Rash, Wounds Neurological: Denies: Numbness, Tingling, Focal weakness Psychiatric: Denies: Anxiety, Depression, Homicidal Ideations, Suicidal Ideations Hematologic/ Lymphatic: Denies: Easy Bruising, Easy Bleeding VTE Information - Inpt Only VTE Present on Admission: No VTE Mechan Device Prophylaxis: None VTE Pharm Prophylaxis ordered?: No Reason prophylaxis not ordered:: Treatment Not Indicated - low risk, encourage ambulation - Physical Exam Vitals/I&O's: Vital Signs Temp Pulse Resp BP Pulse Ox 96.9 F L 108 H 18 164/91 H 97 05/27/20 15:44 05/27/20 15:44 05/27/20 15:44 05/27/20 15:44 05/27/20 15:44 Oxygen Delivery Method Room Air Weight: 230 lb Body Mass Index (BMI) 31.1 Finger Stick Blood Glucose 127 General: Alert, Oriented x3, Cooperative, No apparent distress HEENT: Atraumatic, PERRLA, EOMI, Normocephalic Oral: Dry Mucosa Neck: Supple, No JVD, Negative Carotid Bruits Lungs: Clear to auscultation, Normal air movement, No rhonchi, No wheeze, No rales Cardiovascular: Regular Rhythm, Normal S1, Normal S2, No murmurs, Tachycardic Abdomen: Bowel Sounds Present, Soft, Non Tender, Non-Distended, No Hepato- splenomegaly Extremities: No clubbing, No cyanosis, No edema, Capillary Refill Less than 3 Seconds Skin: No rashes, No breakdown, - - multiple tattoos Musculoskeletal: No Tenderness to Palpation of Joints or Extremities Lymphatic: No Cervical, Supraclavicular, or Inguinal Adenopathy Neurological: Cranial nerves II-XII grossly intact, Neuro grossly intact, Motor Exam 5/5 strength throughout Psych/Mental Status: Normal Affect, Appropriate, Alert and oriented to time, place, person, mood and affect Laboratory Results 05/27/20 16:13: WBC 6.5, RBC 4.72, Hgb 14.2, Hct 42.0, MCV 89.0, MCH 30.1, MCHC 33.8, RDW Std Deviation 41.1, RDW Coeff of Se 12.6, Plt Count 230, MPV 10.5, Immature Gran % (Auto) 0.200, Neut % (Auto) 45.8 L, Lymph % (Auto) 45.5 H, [place] % (Auto) 6.5, Eos % (Auto) 1.5, Baso % (Auto) 0.5, Absolute Neuts (auto) 3.0, Absolute Lymphs (auto) 2.95, Nucleated RBC % 0 05/27/20 16:13: Sodium 141, Potassium 4.0, Chloride 105, Carbon Dioxide 31.0, Anion Gap 5, BUN 9, Creatinine 0.94, Estim Creat Clear Calc 129.56, Est GFR (MDRD) Af Amer 124, Est GFR (MDRD) Non-Af 102, BUN/Creatinine Ratio 9.6 L, Glucose 131 H, Calcium 9.1, Total Bilirubin 0.40, AST 35, ALT 63 H, Alkaline Phosphatase 103, Total Protein 7.8, Albumin 4.2, Globulin 3.6, Albumin/Globulin Ratio 1.2 05/27/20 16:13: Ethyl Alcohol < 3.0 05/27/20 17:00: Urine Opiates Screen NEGATIVE, Urine Methadone Screen NEGATIVE, Ur Barbiturates Screen NEGATIVE, Ur Phencyclidine Scrn NEGATIVE, Ur Amphetamines Screen NEGATIVE, U Methamphetamin-MDMA NEGATIVE, U Benzodiazepines Scrn NEGATIVE, Urine Cocaine Screen NEGATIVE, U Cannabinoids Screen POSITIVE H, Ur Drug Screen Comment Assessment/Plan 29-year-old admitted for acute opioid withdrawal #Acute opioid withdrawal * Admit to [facility]. Patient had tachycardia on admission likely due to withdrawal. * EKG showed normal sinus rhythm with incomplete right bundle branch block which was present on previous EKGs * Started on opioid withdrawal protocol with buprenorphine. * Monitor CINA score. DVT prophylaxis: Low risk. Encouraged to ambulate Inpatient E&M: 37773 Init Hosp L3
--- NOTE | 2020-05-27 18:23 | NURSING ---
MED SURG DR JOY GONSALES DEPENDENCE
[2020-05-27 18:41] VITALS: BP 164/91; PULSE 108; RESP 18; TEMP 36.1; O2SAT 97
[2020-05-27 19:00] VITALS: BP 126/74; PULSE 80; RESP 16; TEMP 36.4; O2SAT 100
[2020-05-27 19:04] VITALS: BMI 34.4
[2020-05-27 19:31] VITALS: BMI 34.5
[2020-05-27] MEDS: Methocarbamol 750 MG Tablet 1500 MG PO (19:57)
[2020-05-27 20:02] VITALS: PULSE 95
[2020-05-27 23:19] VITALS: BP 128/72; PULSE 62; RESP 16; TEMP 36.4; O2SAT 97
[2020-05-28 00:04] VITALS: PULSE 79
[2020-05-28] MEDS: traZODone 100 MG Tablet PO (00:21)
[2020-05-28] MEDS: Buprenorphine HCl 2 MG TAB.SUBL 4 MG SL (00:24)
[2020-05-28] MEDS: hydrOXYzine PAM 25 MG Capsule 50 MG PO (00:24)
[2020-05-28] MEDS: Gabapentin 300 MG Capsule PO (01:49)
--- NOTE | 2020-05-28 02:04 | NURSING ---
Pt stated he felt terrible and I tried medicating him with gabapentin and zofran. Pt started dry heaving and refused the zofran and wanted to leave AMA. Charge nurse ministerio got Pt his belongings from the storage bins, pt signed his AMA papers and left.
--- NOTE | 2020-05-28 07:29 | PCM.DC.SUM ---
Discharge Date and Diagnosis Date of Admission: 05/27/20 Date of Discharge: 05/28/20 - Primary Discharge Diagnosis Acute Problems: acute opioid withdrawal Hospital Course and Treatment Operations: None Procedures: None Summary of Care Provided: The patient is a 29 year old M with no significant past medical history. He was admitted through the ED on 05/27/2020 with a complaint of acute opiate withdrawal. Patient uses heroin and his last use was about 2 hours prior to admission. Patient states he only snorts the heroin. He has never been through detox and also uses nicotine. He denied any abdominal pain, tremors, cramping, increased sweating fever or chills. Review systems otherwise negative. In the ED, vitals showed temperature of 96.9 with blood pressure of 162/91 and pulse rate of 108 as well as respiratory rate of 18. Chemistry was essentially unremarkable apart from ALP of 63. CBC was also unremarkable. Urine tox was positive for cannabinoids and negative for opiates. Blood alcohol level was less than 3. He was admitted to be managed for acute opiate withdrawal. He was started on opioid withdrawal protocol with buprenorphine. However in the early hours of 05/28/2020 around 2 AM, per nurse's note, patient stated he felt terrible and started dry heaving. He refused Zofran. Patient decided to leave [place] and signed his AMA papers and left. Patient was seen at time of admission and examined, as documented per h&p. Patient not examined to his leaving as he left [place].[] - Physical Exam Vitals/I&O's: Vital Signs Temp Pulse Resp BP Pulse Ox 97.5 F L 79 16 128/72 H 97 05/27/20 23:19 05/28/20 00:04 05/27/20 23:19 05/27/20 23:19 05/27/20 23:19 Oxygen Delivery Method Room Air Weight: 254 lb 5 oz Body Mass Index (BMI) 34.4 Finger Stick Blood Glucose 127 Intake and Output for Last 24 Hours 05/26/20 05/27/20 05/28/20 23:59 23:59 23:59 Intake Total 600 / 600 Balance 600 / 600 physical examination at time of admission General: Alert, Oriented x3, Cooperative, No apparent distress HEENT: Atraumatic, PERRLA, EOMI, Normocephalic Oral: Dry Mucosa Neck: Supple, No JVD, Negative Carotid Bruits Lungs: Clear to auscultation, Normal air movement, No rhonchi, No wheeze, No rales Cardiovascular: Regular Rhythm, Normal S1, Normal S2, No murmurs, Tachycardic Abdomen: Bowel Sounds Present, Soft, Non Tender, Non-Distended, No Hepato-splenomegaly Extremities: No clubbing, No cyanosis, No edema, Capillary Refill Less than 3 Seconds Skin: No rashes, No breakdown, - - multiple tattoos Musculoskeletal: No Tenderness to Palpation of Joints or Extremities Lymphatic: No Cervical, Supraclavicular, or Inguinal Adenopathy Neurological: Cranial nerves II-XII grossly intact, Neuro grossly intact, Motor Exam 5/5 strength throughout Psych/Mental Status: Normal Affect, Appropriate, Alert and oriented to time, place, person, mood and affect Laboratory Results 05/27/20 16:13: WBC 6.5, RBC 4.72, Hgb 14.2, Hct 42.0, MCV 89.0, MCH 30.1, MCHC 33.8, RDW Std Deviation 41.1, RDW Coeff of Se 12.6, Plt Count 230, MPV 10.5, Immature Gran % (Auto) 0.200, Neut % (Auto) 45.8 L, Lymph % (Auto) 45.5 H, [place] % (Auto) 6.5, Eos % (Auto) 1.5, Baso % (Auto) 0.5, Absolute Neuts (auto) 3.0, Absolute Lymphs (auto) 2.95, Nucleated RBC % 0 05/27/20 16:13: Sodium 141, Potassium 4.0, Chloride 105, Carbon Dioxide 31.0, Anion Gap 5, BUN 9, Creatinine 0.94, Estim Creat Clear Calc 129.56, Est GFR (MDRD) Af Amer 124, Est GFR (MDRD) Non-Af 102, BUN/Creatinine Ratio 9.6 L, Glucose 131 H, Calcium 9.1, Total Bilirubin 0.40, AST 35, ALT 63 H, Alkaline Phosphatase 103, Total Protein 7.8, Albumin 4.2, Globulin 3.6, Albumin/Globulin Ratio 1.2 05/27/20 16:13: Ethyl Alcohol < 3.0 05/27/20 17:00: Urine Opiates Screen NEGATIVE, Urine Methadone Screen NEGATIVE, Ur Barbiturates Screen NEGATIVE, Ur Phencyclidine Scrn NEGATIVE, Ur Amphetamines Screen NEGATIVE, U Methamphetamin-MDMA NEGATIVE, U Benzodiazepines Scrn NEGATIVE, Urine Cocaine Screen NEGATIVE, U Cannabinoids Screen POSITIVE H, Ur Drug Screen Comment Home Medications: Medications to take at Discharge NK 05/27/20 Primary Care Physician: Care Physician,No Primary [Primary Care Provider] - Disposition: Against Medical Advice Minutes spent on discharge:: 35 Patient Condition:: Stable Medical Necessity - Tobacco Use Smoking Status: Never smoker Tobacco Use: Cigarettes Meaningful Use Info Meaningful Use Diagnoses (Choose all that apply): None applicable Inpatient E&M: 29061 Disch Hosp
== END 2020-05-28 02:00 | disposition left against medical advice (07) ==
LOC: ED 18:18 → MS3 05-29 10:16
PROVIDERS: Admitting Provider Student in an Organized Health Care Education/Training Program; Emergency Provider Physician Assistant Medical; Visit Provider Student in an Organized Health Care Education/Training Program
DX: F11.23 Opioid dependence with withdrawal (principal); I45.10 Unspecified right bundle-branch block
CPT/HCPCS: 36415; 80053; 80307; 80320; 85025; 93005; 99218; 99284; G0378; G0480

== ENCOUNTER 2021-12-28 16:40 | Emergency (ER) | payer MEDICAID, SELFPAY ==
[2021-12-28 16:41] VITALS: BP 133/102; PULSE 102; RESP 18; TEMP 35.8; O2SAT 96; BMI 32.5
--- NOTE | 2021-12-28 17:05 | RAD_ITS ---
STUDY: X-RAY - RIGHT KNEE REASON FOR EXAM: Male, 31 years old. Anterior knee pain after falling TECHNIQUE: 4 view(s) of the knee. COMPARISON: None. FINDINGS: Normal visualized distal femur. Normal visualized proximal tibia and fibula. Normal proximal tibiofibular articulation. Normal medial femorotibial compartment. Normal lateral femorotibial compartment. Normal patellofemoral articulation. There is no demonstrated joint effusion. The soft tissue structures are unremarkable. RAD/Knee 4 or More Views IMPRESSION: Normal x-ray examination of the knee. Electronically Signed: Sergio Bedoya MD ([place]) at 17:24 EDT ,
--- NOTE | 2021-12-28 17:05 | ED.VIS.LOWEX ---
HPI History of Present Illness Chief Complaint: Fall Narrative Narrative: Patient presents with injury to his right knee that he sustained yesterday evening at around 9 PM. He states that he was at [facility] and was in an area where they were holding chickens. A dog had urinated on the ground and he had stepped in it and slipped. He fell onto his right knee and did the splits. When he grabbed onto the fence to try to get up, he fell back onto his right knee. He denies hitting his head or loss of consciousness. He now has pain diffusely throughout his right knee, but worse with weightbearing and walking. He took Tylenol without relief. He was going to come to the emergency department last evening but declined. He presents because of his right knee injury. He denies other injuries. [facility] Home Medications NK 05/27/20 [History Last Taken Unknown] Allergy/AdvReac Type Severity Reaction Status Date / Time No Known Allergies Allergy Verified 12/28/21 16:41 Social History Smoking Status: Never smoker ROS ROS ED ROS Narrative Constitutional: No fever, no chills. HEENT: No sore throat. No neck pain. No loss of vision. No rhinorrhea. Cardiovascular: No chest pain. No palpitations. No pedal edema. Respiratory: No cough, no shortness of breath. Abdominal: No abdominal pain. No nausea. No vomiting. Genitourinary: No dysuria. No hematuria. Musculoskeletal: No myalgias. Right knee pain worse with movement and weightbearing. Neurologic: No headaches. No dizziness. No lightheadedness. Skin: No rash. No change in color. Psychiatric: No depression. No anxiety. EXAM Physical Exam Narrative Exam Narrative: Afebrile. Vital signs noted. HEENT: Normocephalic. Atraumatic. PERRL, EOMI. Neck soft and supple. No point tenderness or step off. Cardiovascular: Regular rate and rhythm. No murmurs, rubs, or gallops appreciated. Respiratory: No tachypnea. Lungs clear to auscultation bilaterally. Gastrointestinal: Abdomen soft, nontender, with normoactive bowel sounds. No rebound or guarding. Neurological: Awake. Alert. Nonfocal, nonlateralizing. Skin: No rash. Normal color. No pallor. Musculoskeletal: No pedal edema. Diffuse tenderness to palpation right knee along medial and lateral meniscus lines. Flexion and extension mechanisms intact. Able to lift leg off bed without difficulty. Palpable dorsalis pedis pulse. Anterior drawer test stable.. Const Vital Signs: 12/28/21 16:41 12/28/21 16:58 Temperature 96.5 F L Temperature Source Temporal Pulse Rate 102 H Respiratory Rate 18 Respiratory Effort Normal Non-Labored Respiratory Depth Normal Respiratory Pattern Normal Blood Pressure 133/102 H Blood Pressure Mean 112 Pulse Ox 96 Oxygen Delivery Method Room Air Room Air MDM MDM MDM Narrative Medical decision making narrative: I do feel that he has more of a knee sprain versus possible torn lateral meniscal cartilage. He was given ibuprofen for pain and x-rays were obtained of the right knee and 4 views. I interpreted these x-rays. I see no evidence of acute fracture or effusion. At this point in time, he declined crutches. He will continue ice and elevation and [id number] NSAIDs at home as needed. He did request an Jd wrap. I referred him to the orthopedic surgeon on-call, Dr. Strange, to see in 7 to 10 days as needed. Otherwise he can follow-up with his primary care physician. Return instructions to the emergency department were reviewed. Disposition is discharged home in stable condition. Radiography Diagnostic Testing: Clinical Impression(s) from Imaging Studies Knee X-Ray 12/28/21 17:05 IMPRESSION: Normal x-ray examination of the knee. Electronically Signed: Sergio Bedoya MD ([place]) at 17:24 EDT Reading Location ID and State: [facility] / [place] , Service support , Discharge Plan Triage Chief Complaint: Fall ED Provider: Jamey Torres Dx/Rx/DC Orders Clinical Impression: Fall, Right knee sprain, Internal derangement of right knee Instructions: How Your Knee Works, ED Knee Sprain Prescriptions: No Action NK RF: 0 Primary Care Provider: Care Physician,No Primary Referrals: Jesse Strange DO [STAFF PHYSICIAN] - 10-14 Days if not better Care Physician,No Primary [Primary Care Provider] - Disposition Disposition: Home, Self Care
[2021-12-28] MEDS: Ibuprofen 400 MG Tablet 800 MG PO (17:13)
[2021-12-28 18:09] VITALS: RESP 16
== END 2021-12-28 18:22 | disposition home or self-care (01) ==
PROVIDERS: Emergency Provider Emergency Medicine; Visit Provider Emergency Medicine
DX: S83.91XA Sprain of unspecified site of right knee, initial encounter (principal); W01.0XXA Fall on same level from slipping, tripping and stumbling without subsequent striking against object, initial encounter; M23.91 Unspecified internal derangement of right knee
CPT/HCPCS: 73564; 99283

== ENCOUNTER 2022-01-18 21:23 | Emergency (ER) | payer MEDICAID, SELFPAY ==
[2022-01-18 21:24] VITALS: BP 132/83; PULSE 75; RESP 16; TEMP 36.7; O2SAT 100; BMI 29.8
[2022-01-18 21:26] VITALS: BP 132/83; PULSE 75; RESP 16; TEMP 36.7; O2SAT 100
--- NOTE | 2022-01-18 23:17 | ED.VIS.GI ---
HPI HPI - GI History of Present Illness Chief Complaint: Nausea/Vomiting Narrative Narrative: 31-year-old male presenting with nausea/vomiting for 3 days. He reports that he had a low-grade temperature of 101 the day before yesterday but this is now resolved. His temperature prior to arrival was 97.0 Fahrenheit. Patient has not had any diarrhea. He does not report any abdominal pain. He states he is not a smoker or drinker. No significant medical history. No urinary complaints. No known sick contacts. Patient has not had any abnormal changes in his diet other than decreased p.o. intake. PFSH PFSH Home Medications famotidine [Pepcid] 20 mg PO BID PRN #10 tab 01/19/22 [Rx Last Taken Unknown] ondansetron 4 mg PO Q8H PRN #10 tab 01/19/22 [Rx Last Taken Unknown] Allergy/AdvReac Type Severity Reaction Status Date / Time No Known Allergies Allergy Verified 01/18/22 21:26 Social History Smoking Status: Never smoker ROS ROS ED Constitutional Constitutional ED: Reports fever(s); Denies chills ENT ENT ED: Denies rhinorrhea or sore throat Cardiovascular Cardiovascular: Denies chest pain or palpitations Respiratory/Chest Respiratory/Chest: Denies cough or dyspnea Gastrointestinal Gastrointestinal: Reports nausea and vomiting; Denies abdominal pain or diarrhea Genitourinary Genitourinary ED: Denies dysuria or hematuria Musculoskeletal Musculoskeletal: Denies arthralgias or myalgias Integumentary Denies rash Neurologic Neurologic: Denies headache(s), paresthesias or weakness Psychiatric Psychiatric: Denies anxiety or depression EXAM Physical Exam Const Vital Signs: 01/18/22 21:24 01/18/22 21:26 Temperature 98.1 F 98.1 F Temperature Source Temporal Temporal Pulse Rate 75 75 Respiratory Rate 16 16 Blood Pressure 132/83 H 132/83 H Blood Pressure Mean 99 99 Pulse Ox 100 100 Oxygen Delivery Method Room Air Room Air Positive well nourished General Appearance ED: NAD; Negative for pallor HEENT Reports moist mucous membranes normocephalic and atraumatic Eyes EOMs intact bilaterally General Eye ED: Negative for pale conjunctiva or scleral icterus Resp normal respiratory effort and clear to auscultation bilaterally Cardio regular rate and regular rhythm GI non-tender and non-distended Palpation: soft Neuro Sensorium / Orientation: alert, oriented to person, oriented to place and oriented to time Psych mental status grossly normal and thought process normal Skin General Skin Exam: Negative for jaundice or pallor MDM MDM MDM Narrative Medical decision making narrative: Patient presenting with nausea/vomiting. He does not report any diarrhea. He does state he had a fever that resolved. This is been about 48 hours. Patient does not have abdominal pain. No urinary complaints. Patient states he is having trouble holding down food and fluids. He is amenable to trying oral Zofran and Pepcid initially to see if he can improve and hydrate. If this does not work I will have an IV line placed and try more antiemetics. On reevaluation the patient feels improved. He request a work note for today and tomorrow. Patient given Zofran and Pepcid for home. He is instructed on clear liquid diet advance to soft diet as tolerated. He is given return precautions. Impression: 1. Nausea/vomiting 2. Viral syndrome Discharge Plan Triage Chief Complaint: Nausea/Vomiting ED Provider: Ty Monet Dx/Rx/DC Orders Instructions: ED Gastroenteritis, Viral (Adult) Prescriptions: New ondansetron 4 mg tablet,disintegrating 4 mg PO Q8H PRN (Reason: nausea and vomiting) Qty: 10 RF: 0 famotidine [Pepcid] 20 mg tablet 20 mg PO BID PRN (Reason: dyspepsia) Qty: 10 RF: 0 Primary Care Provider: Care Physician,No Primary Referrals: Melinda Brown MD [STAFF PHYSICIAN] - 3-5 Days Care Physician,No Primary [Primary Care Provider] - Disposition Disposition: Home, Self Care
[2022-01-18] MEDS: Ondansetron ODT 4 MG Tablet PO (23:32)
[2022-01-18] MEDS: Famotidine 20 MG Tablet PO (23:32)
[2022-01-19 00:01] VITALS: RESP 17; O2SAT 98
[2022-01-19 00:08] VITALS: RESP 16
== END 2022-01-19 00:13 | disposition home or self-care (01) ==
PROVIDERS: Emergency Provider Student in an Organized Health Care Education/Training Program; Visit Provider Student in an Organized Health Care Education/Training Program
DX: B34.9 Viral infection, unspecified (principal); R11.2 Nausea with vomiting, unspecified
CPT/HCPCS: 99283

== ENCOUNTER 2023-03-27 14:04 | Emergency (ER) | payer MEDICAID, SELFPAY ==
[2023-03-27 14:05] VITALS: BP 135/80; PULSE 45; RESP 18; TEMP 35.8; O2SAT 97; BMI 40.4
--- NOTE | 2023-03-27 14:20 | ED.VIS.DENTA ---
HPI History of Present Illness Chief Complaint: Dental Informant: patient Onset/Context/Timing Onset: Days (2) Context: Gradual Onset Timing: Continuous Quality: Sharp Location: Bilateral lower molars Worsened by: Chewing Relieved by: - (Pressure) Associated Symptoms Assocated Symptom - Dental: cold sensitivity; Negative for fever, jaw swelling, face swelling or hot sensitivity Narrative Narrative: Patient presents with dental pain that has been getting worse over the past 2 days. Patient states it is gradually getting worse. Patient describes the pain as sharp. Patient states it is over the lower molars bilaterally. Patient states it is worse with chewing. Patient states it is better when he applies pressure to the area. Patient admits to some mild cold sensitivity. Patient denies any fevers or chills. Patient denies any facial or jaw swelling. PFSH PFSH Medical History no medical history no medical history Home Medications famotidine 20 mg tablet (Pepcid) 20 mg PO BID PRN dyspepsia #10 tabs 01/19/22 [Rx Last Taken Unknown] ondansetron 4 mg disintegrating tablet 4 mg PO Q8H PRN nausea and vomiting #10 tabs 01/19/22 [Rx Last Taken Unknown] naproxen 500 mg tablet 500 mg PO BID PRN #20 tabs 03/27/23 [Rx Last Taken Unknown] penicillin V potassium 500 mg tablet 500 mg PO 4X/DAY #40 tabs 03/27/23 [Rx Last Taken Unknown] Allergy/AdvReac Type Severity Reaction Status Date / Time No Known Allergies Allergy Verified 01/18/22 21:26 Surgical History no surgical history no surgical history Social History Smoking Status: Never smoker ROS ROS ED Constitutional Constitutional ED: Denies chills or fever(s) Eyes Eyes: Denies blurry vision or change in vision ENT ENT ED: Denies rhinorrhea or sore throat Cardiovascular Cardiovascular: Denies chest pain or palpitations Respiratory/Chest Respiratory/Chest: Denies cough or dyspnea Gastrointestinal Gastrointestinal: Denies nausea or vomiting Genitourinary Genitourinary ED: Denies dysuria or hematuria Musculoskeletal Musculoskeletal: Denies back pain or neck pain Integumentary Denies abscess or rash Neurologic Neurologic: Denies headache(s) or weakness Allergic/Immunologic Allergic/Immunologic ED: Denies mouth swelling or urticaria EXAM Physical Exam Const Vital Signs: 03/27/23 14:05 Temperature 96.5 F L Temperature Source Temporal Pulse Rate 45 L Respiratory Rate 18 Blood Pressure 135/80 H Blood Pressure Mean 98 Pulse Ox 97 Oxygen Delivery Method Room Air Positive well nourished and well developed General Appearance ED: well developed and NAD HEENT HEENT Narrative: There are large dental caries noted over the right lower first molar and left lower second molar. There is mild gingival edema around these teeth. There is no discharge or drainage. There is no evidence of any abscess. Oral mucosa is pink and moist. Oropharynx is clear. Airway is patent. Neck is supple. Trachea is midline. There is no JVD or lymphadenopathy. There is no sublingual edema or swelling. There is no sublingual erythema. There is no evidence of Wellington's angina. Mouth ED: Yes oral and palatal mucosa normal Mouth: oral and palatal mucosa normal Teeth and Gingiva: caries and gingiva abnormal Positive for gingival edema Throat: posterior oropharynx normal Neck no lymphadenopathy, supple and no JVD General: normal visual inspection; Negative for anterior neck swelling, tenderness or submandibular swelling Neuro oriented x3, CN's II-XII intact bilaterally, moves all extremities, no focal motor deficits and no sensory deficits noted Sensorium / Orientation: alert Motor Exam: strength 5/5 throughout MDM MDM MDM Narrative Medical decision making narrative: Patient was advised that this is most likely a dental infection causing his pain. Patient was given a dose of Pen-Vee K here. Patient is given a prescription for Pen-Vee K. Patient was also given a prescription for Naprosyn. Patient was instructed to follow-up with a dentist in 5 to 7 days. Patient was given a dental referral list. Patient was instructed to return if worse in any way. Patient understood and was agreeable with the plan. All questions were answered. Discharge Plan Triage Chief Complaint: Dental ED Provider: Duc Villalba Dx/Rx/DC Orders Clinical Impression: Infected dental caries Instructions: ED Dental Pain, ED Dental Cavity Prescriptions: New penicillin V potassium 500 mg tablet 500 mg PO 4X/DAY Qty: 40 0RF naproxen 500 mg tablet 500 mg PO BID PRN Qty: 20 0RF No Action ondansetron 4 mg tablet,disintegrating 4 mg PO Q8H PRN (Reason: nausea and vomiting) Qty: 10 0RF famotidine [Pepcid] 20 mg tablet 20 mg PO BID PRN (Reason: dyspepsia) Qty: 10 0RF Primary Care Provider: Care Physician,No Primary Referrals: Care Physician,No Primary [Primary Care Provider] - Dentist,Your [STAFF PHYSICIAN] - 5-7 Days Disposition Disposition: Home, Self Care
[2023-03-27] MEDS: Naproxen 250 MG Tablet 500 MG PO (14:35)
[2023-03-27] MEDS: Penicillin Vk 250 MG Tablet 500 MG PO (14:35)
== END 2023-03-27 14:38 | disposition home or self-care (01) ==
PROVIDERS: Emergency Provider Emergency Medicine; Visit Provider Emergency Medicine
DX: K02.9 Dental caries, unspecified (principal)
CPT/HCPCS: 99283

== ENCOUNTER 2024-03-25 10:24 | Emergency (ER) | payer MEDICAID, SELFPAY ==
[2024-03-25 10:24] VITALS: BP 135/80; PULSE 74; RESP 14; TEMP 36.6; O2SAT 98; BMI 31.6
--- NOTE | 2024-03-25 11:02 | ED.VIS.LOWEX ---
HPI History of Present Illness Chief Complaint: Lower Extremity Injury Informant: patient Narrative Narrative: 33-year-old healthy male states his right great toe has been sore at the tibial aspect of it for 2 weeks or so, think he may be had an ingrown toenail. Then he went [place] at [facility], and in the last couple days it has become more painful, swollen, and there is some discharge. No systemic symptoms or fevers. PFSH PFSH Medical History no medical history Home Medications ?Medication ?Instructions ?Recorded ?Last Taken ?Type famotidine 20 mg tablet (Pepcid) 20 mg PO BID PRN dyspepsia #10 tabs 01/19/22 Unknown Rx ondansetron 4 mg disintegrating 4 mg PO Q8H PRN nausea and 01/19/22 Unknown Rx tablet vomiting #10 tabs naproxen 500 mg tablet 500 mg PO BID PRN #20 tabs 03/27/23 Unknown Rx penicillin V potassium 500 mg 500 mg PO 4X/DAY #40 tabs 03/27/23 Unknown Rx tablet clindamycin HCl 300 mg capsule 300 mg PO Q6H #40 CAPSULES 03/25/24 Unknown Rx (Cleocin HCl) Allergy/AdvReac Type Severity Reaction Status Date / Time No Known Allergies Allergy Verified 03/25/24 10:24 Family History no significant family his Surgical History no surgical history Social History Smoking Status: Never smoker ROS ROS ED Constitutional Constitutional ED: Denies chills or fever(s) Musculoskeletal Musculoskeletal: Reports extremity pain; Denies neck pain Integumentary Reports wounds; Denies Abrasions or rash Neurologic Neurologic: Denies paresthesias or weakness EXAM Physical Exam Const Vital Signs: 03/25/24 10:24 Temperature 98 F Temperature Source Temporal Pulse Rate 74 Respiratory Rate 14 Blood Pressure 135/80 H Blood Pressure Mean 98 Pulse Ox 98 Oxygen Delivery Method Room Air Positive well nourished and well developed General Appearance ED: well developed and NAD Neck full ROM and supple Back/Spine normal ROM and normal to inspection Extremity Extremity Narrative: Left great toe with swelling and tenderness/erythema tibial aspect of the toenail. There is no fluctuance or palpable abscess. There is some crusted reddish discharge at the crease of the nail at the tibial aspect, but the nail is intact in the nailbed, there may be some ingrown aspect of the nail on both sides of it, but there is no expressible discharge at this time. The cuticle is benign and unaffected. There is no erythema more proximally. Neuro oriented x3, no focal motor deficits and no sensory deficits noted Sensorium / Orientation: alert Psych mental status grossly normal and thought process normal Skin no wounds Rashes: no rashes MDM MDM MDM Narrative Medical decision making narrative: This is consistent with a paronychia but there does not appear to be an abscess that requires incision and drainage at this time. I recommend hot soapy soaks and I will put him on clindamycin to better cover strep and staph but also anaerobes, and have him follow-up with podiatry. I do not think he has to have emergent excision of the ingrown toenails and since there is infection requiring antibiotics at this time without an abscess, given the amount of discomfort that would entail I think he can wait until he follows up for that. Discharge Plan Triage Chief Complaint: Lower Extremity Injury ED Provider: Apolinar Randall Dx/Rx/DC Orders Clinical Impression: Paronychia of great toe of right foot, Ingrowing right great toenail Instructions: ED Paronychia of the Finger or Toe Prescriptions: New clindamycin HCl [Cleocin HCl] 300 mg capsule 300 mg PO Q6H Qty: 40 0RF No Action ondansetron 4 mg tablet,disintegrating 4 mg PO Q8H PRN (Reason: nausea and vomiting) Qty: 10 0RF famotidine [Pepcid] 20 mg tablet 20 mg PO BID PRN (Reason: dyspepsia) Qty: 10 0RF penicillin V potassium 500 mg tablet 500 mg PO 4X/DAY Qty: 40 0RF naproxen 500 mg tablet 500 mg PO BID PRN Qty: 20 0RF Primary Care Provider: Care Physician,No Primary Referrals: Hill Luke DPM [Med Staff - Active Staff] - As soon as possible (call for appt) Care Physician,No Primary [Primary Care Provider] - Activity Restrictions/Additional Instructions: Perform warm-hot soapy soaks 2 times daily for the next few days until improving; use water as hot as you can stand without burning yourself, and soak until it is room temperature, usually 15 or 20 minutes. Print Language: Khmer Disposition Disposition: Home, Self Care
[2024-03-25] MEDS: Clindamycin HCl 150 MG Capsule 300 MG PO (11:05)
== END 2024-03-25 11:21 | disposition home or self-care (01) ==
PROVIDERS: Emergency Provider Emergency Medicine; Visit Provider Emergency Medicine
DX: L03.031 Cellulitis of right toe (principal); L60.0 Ingrowing nail
CPT/HCPCS: 99283

== ENCOUNTER 2024-11-09 12:26 | Emergency (ER) | payer OTHER, MEDICAID, SELFPAY ==
[2024-11-09 12:27] VITALS: BP 143/89; PULSE 77; RESP 16; TEMP 36.7; O2SAT 100; BMI 27.6
[2024-11-09] MEDS: Lidocaine 5% Patch 1 PATCH TOPICAL (12:58)
[2024-11-09] MEDS: cycloBENZAPRine HCl 10 MG Tablet PO (12:59)
[2024-11-09] MEDS: Ibuprofen 600 MG Tablet PO (12:59)
--- NOTE | 2024-11-09 13:15 | RAD_ITS ---
PROCEDURE: LUMBOSACRAL SPINE, SINGLE VIEW REASON FOR EXAM: LOW BACK PAIN. TECHNIQUE: OBLIQUE VIEW. COMPARISON: NO RELEVANT PRIOR AVAILABLE FOR COMPARISON FINDINGS: No acute osseous findings. No segmentation anomalies. Paraspinal contours are preserved. RAD/L/S Spine Min 4 Views IMPRESSION: No significant findings on this single oblique view of the lumbar spine. Reading Location: [facility]
--- NOTE | 2024-11-09 13:18 | EDS_ITS ---
HPI History of Present Illness Chief Complaint: Back Informant: patient Narrative Narrative: Patient is a 34-year-old male with history of opioid dependency (on monthly injection of Brixadia) presenting with low back pain. Patient states he was work last night (works second shift) and was lifting a 25 kg bag material and trying to pour it out. Was on a stepladder doing this. While he was leaning over to jump out the bag he felt a pop in his right lower back. He states he had a drop down to his knees and spoke the bag because the pain was so bad. He was able ultimately to get up and then was hunched around limping around. As the night went on (did not leave work because he did not want to get the point for work his back pain was getting worse. He states he could get in the shower when he got home last night. He woke up this morning with the pain that was worse. His fianc?e recommend he come to the ER for further evaluation. He is not take any for pain prior to arrival. He states the pain shoots up his back. He denies any weakness of his legs. He denies any bowel or bladder incontinence. Denies any fever or chills. Denies any night sweats. States that when he tried to have a bowel movement he had increased pain when he was trying to bear down. No saddle anesthesia reported. [facility] Medical History Drug abuse in remission Home Medications ?Medication ?Instructions ?Recorded ?Last Taken ?Type famotidine 20 mg tablet (Pepcid) 20 mg PO BID PRN dysp epsia #10 tabs 01/19/22 Unknown Rx ondansetron 4 mg disintegrating 4 mg PO Q8H PRN nausea and 01/19/22 Unknown Rx tablet vomiting #10 tabs naproxen 500 mg tablet 500 mg PO BID PRN #20 tabs 0 03/27/23 Unknown Rx penicillin V potassium 500 mg 500 mg PO 4X/DAY #40 tab s 03/27/23 Unknown Rx tablet clindamycin HCl 300 mg capsule 300 mg PO Q6H #40 CAPSU LES 03/25/24 Unknown Rx (Cleocin HCl) cyclobenzaprine 10 mg tablet 10 mg PO TID PRN Muscle S pasm #20 11/09/24 Unknown Rx TABLETS Allergy/AdvReac Type Severity Reaction Status Date / Time No Known Allergies Allergy Verified 11/09/24 12:29 Family History no significant family his Social History current occupational status: employed Smoking Status: Never smoker ROS ROS ED Constitutional Constitutional ED: Denies chills or fever(s) Eyes Eyes: Denies change in vision Genitourinary Genitourinary ED: Reports other Details: Denies urinary incontinence ; Denies dysuria or urinary frequency Musculoskeletal Musculoskeletal: Reports back pain; Denies neck pain Integumentary Denies rash Neurologic Neurologic: Denies paresthesias or weakness Psychiatric Psychiatric: Denies anxiety Hematologic/Lymphatic Hematologic/Lymphatic: Denies easy bleeding or easy bruising EXAM Physical Exam Const Vital Signs: 11/09/24 12:27 11/09/24 14:38 11/09/24 15:35 Temperature 98.1 F 98.7 F Temperature Source Temporal Pulse Rate 77 76 86 Respiratory Rate 16 16 16 Blood Pressure 143/89 H 146/86 H Blood Pressure Mean 107 106 Pulse Ox 100 98 98 Oxygen Delivery Method Room Air Room Air Positive well nourished and well developed General Appearance ED: well developed and NAD HEENT Reports moist mucous membranes Neck supple Resp normal respiratory effort and clear to auscultation bilaterally Cardio regular rate and regular rhythm GI normal to inspection, nondistended, normoactive bowel sounds, soft to palpation and non-tender Back/Spine Back/Spine Narrative: Tenderness palpation over the left SI joint as well as the left lower lumbar area most pronounced around L4/L5. There is some associated tenderness of the midline lumbar spine at L5 and right paraspinal lumbar area at that level but less so than the left Thoracic Spine / Upper Back: Negative for paraspinal muscle tenderness Lumbar Spine / Lower Back: ROM limited and straight leg raise positive right at 40 degrees Extremity normal to inspection Extremity Narrative: 5/5 strength with plantar dorsiflexion. Sensation intact in the lower extremities. Able to ambulate. Neuro oriented x3 and no sensory deficits noted Sensorium / Orientation: alert Motor Exam: strength 5/5 throughout Psych mental status grossly normal MDM MDM MDM Narrative Medical decision making narrative: Patient evaluated for atraumatic back pain. He does have some midline tenderness will obtain x-ray. X-ray reviewed by myself as well as radiology does not show any acute fracture. Of note there is a 5 view film but radiology report only commented on single oblique view. No physical exam findings concerning for cauda equina syndrome or epidural abscess. Patient given Lidoderm patch and ibuprofen and Flexeril the emergency room. Workmen's Compensation paperwork is filed. Suspect this is a muscular strain. Will be given outpatient referral for [facility] as well as a prescription for Flexeril. Given return precautions. Discharged home in stable condition. Patient able to ambulate in the emergency room Lab Data Attestation: I reviewed the patient's lab results. Radiography Diagnostic Testing: Clinical Impression(s) from Imaging Studies Lumbar Spine X-Ray 11/09/24 13:15 IMPRESSION: No significant findings on this single oblique view of the lumbar spine. Reading Location: [facility] Discharge Plan Triage Chief Complaint: Back ED Provider: Collette Silverman Dx/Rx/DC Orders Clinical Impression: Acute lumbar myofascial strain Instructions: ED Back Sprain/Strain Prescriptions: New cyclobenzaprine 10 mg tablet 10 mg PO TID PRN (Reason: Muscle Spasm) Qty: 20 0RF No Action ondansetron 4 mg tablet,disintegrating 4 mg PO Q8H PRN (Reason: nausea and vomiting) Qty: 10 0RF famotidine [Pepcid] 20 mg tablet 20 mg PO BID PRN (Reason: dyspepsia) Qty: 10 0RF penicillin V potassium 500 mg tablet 500 mg PO 4X/DAY Qty: 40 0RF naproxen 500 mg tablet 500 mg PO BID PRN Qty: 20 0RF clindamycin HCl [Cleocin HCl] 300 mg capsule 300 mg PO Q6H Qty: 40 0RF Stand Alone Forms: Work Status Form Primary Care Provider: Care Physician,No [facility] - Care Physician,No Primary [Primary Care Provider] - Activity Restrictions/Additional Instructions: Your x-ray did not show any acute fracture or bony abnormality. I recommend heat to your back. Take ibuprofen 600 mg (3 [id number] tablets of 200 mg ibuprofen) every 6 hours for pain. Follow-up with [facility]. You find it helpful, I also recommend using [id number] 4% exercise Lidoderm patches for your pain Print Language: Ethiopian Disposition Disposition: Home, Self Care Discharge Date/Time: 11/09/24 15:38
[2024-11-09 14:38] VITALS: PULSE 76; RESP 16; O2SAT 98
[2024-11-09 15:35] VITALS: BP 146/86; PULSE 86; RESP 16; TEMP 37.1; O2SAT 98
== END 2024-11-09 15:38 | disposition home or self-care (01) ==
PROVIDERS: Emergency Provider Emergency Medicine; Visit Provider Emergency Medicine
DX: S39.012A Strain of muscle, fascia and tendon of lower back, initial encounter (principal); X58.XXXA Exposure to other specified factors, initial encounter
CPT/HCPCS: 72110; 99283